=== PATIENT | female | born 1945 | race Caucasian/White ===

== ENCOUNTER 2016-04-19 11:14 | Day surgery (SDC) | payer MEDICARE, OTHER ==
[2016-04-16 10:06] LABS: BASOPHILS 1.2 %; BASOPHILS ABSOLUTE 0.07 10/3/uL (0.0-0.16); EOSINOPHILS 4.4 %; EOSINOPHILS ABSOLUTE 0.25 10/3/uL (0.0-0.53); HEMATOCRIT 41.3 % (36.0-48.0); HEMOGLOBIN 14.1 g/dL (12.0-16.0); IMMATURE GRANULOCYTES 0.2 %; IMMATURE GRANULOCYTES ABSOLUTE 0.01 10/3/uL (0.0-0.11); LYMPHOCYTES 21.5 %; LYMPHOCYTES ABSOLUTE 1.23 10/3/uL (0.67-4.30); MEAN CORPUS HGB CONC 34.1 g/dL (32.0-36.0); MEAN CORPUSCULAR HEMOGLOB 30.8 pg (26.0-34.0); MEAN CORPUSCULAR VOLUME 90.2 fL (80-100); MEAN PLATELET VOLUME 10.5 fL (9.2-13.0); MONOCYTES 10.7 %; MONOCYTES ABSOLUTE 0.61 10/3/uL (0.21-1.20); NEUTROPHILS ABSOLUTE 3.54 10/3/uL (2.02-8.40); PLATELET COUNT 279 10/3/uL (150-400); RBC DISTRIBUTION WIDTH 13.5 % (12.0-16.0); RED CELL COUNT 4.58 10/6/uL (4.0-5.6); WHITE BLOOD CELLS 5.7 10/3/uL (4.5-10.5)
[2016-04-16 10:07] LABS: MANUAL DIFF NO %
[2016-04-16 10:13] LABS: INTERNATIONAL NORMAL RATI 1.1 UNITS (-); PARTIAL THROMBO TIME 30.9 SEC (22.5-37.2)
[2016-04-16 10:21] LABS: BUN (BLOOD UREA NITROGEN) 19 MG/DL (6-23); CALCIUM, SERUM 8.6 MG/DL (8.5-10.4); CHLORIDE, SERUM 105 MMOL/L (96-112); CO2 (CARBON DIOXIDE) 27 MMOL/L (24-34); CREATININE 0.96 MG/DL (0.55-1.02); GFR AFRICAN AMERICAN 68 ML/MIN (>=60); GFR NON AFRICAN AMERICAN 59 ML/MIN (>=60); POTASSIUM, SERUM 4.9 MMOL/L (3.5-5.3); SODIUM, SERUM 142 MMOL/L (135-148)
[2016-04-16 10:23] LABS: GLUCOSE, SERUM 126 MG/DL (60-99)
[2016-04-16 10:26] LABS: PFA (COL/EPI) 108 SEC (72-180)
[2016-04-18 11:24] LABS: ALKALINE PHOSPHATASE 95 U/L (45-117); SGOT(AST) 19 U/L (5-40); SGPT(ALT) 27 U/L (5-65); TOTAL BILIRUBIN 0.2 MG/DL (0-1.2)
[2016-04-18 11:58] LABS: A/G RATIO 1.3 (0.7-1.9); GLOBULIN 3.2 G/DL (2.5-4.1); TOTAL PROTEIN 7.2 G/DL (6.0-8.5)
--- NOTE | ~2016-04-19 | OP ---
Record Of Operation [facility] [address] [place]. [address] NAME: SHIV KO : 41 STATUS : REG [facility]#: [id number] AGE: 71 ADM/REG DATE : 04/19/16 MR#: [id number] REPORT SERV DATE: 04/19/16 DICTATED BY: WILLIAM HAJI JR. DATE: 04/19/16 REPORT STATUS : Draft TRANSCRIBED BY: MODL DATE: 04/19/16 DATE OF PROCEDURE: REASON FOR SURGERY: Ms. Ko is a 71-year-old patient, underwent mastectomy on the right side without reconstruction in 2009. She had postoperative radiation therapy and chemotherapy. The lesion was aggressive and with node positive, but had complete pathological response. 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 She recently developed a firm area that was evaluated mainly arising on the inferior flap which is some advancement of the abdominal fatty tissue. There is one area of bluish discoloration. Core biopsy revealed a recurrent angiosarcoma. CT scan prior to this revealed a vague area of what is thought to be tumor recurrence measuring 2.5 to 3 cm, but the margins are so vague it extend for considerable area around this, as it is so common for sarcomas. The previous split-thickness skin graft is somewhat of a barrier to the superior extent of this, while the bulk of the recurrence is at the margin of the inferior flap. PREOPERATIVE DIAGNOSIS: Recurrent angiosarcoma, right chest wall. POSTOPERATIVE DIAGNOSIS: Recurrent angiosarcoma, right chest wall. SURGEON: William Haji M.D. with reconstruction by Dr. Fajardo. PROCEDURE IN DETAIL: Under general anesthesia, the patient was prepped and draped in supine position in usual sterile fashion. A large disc of the chest wall was marked measuring 20 x 12 cm. The inferior 50% of the previous split-thickness skin graft was incorporated. The largest vertical diameter was on the abdominal wall with the full 6 cm extending beyond the inferior edge of the known tumor recurrence. Medially and laterally, the old incisions involving areas of failed TRAM flap rotation and previous breast reductions were used for the additional areas of extension moving just beyond these. The incision was made and dissection was carried down through the fatty tissue to the chest wall. The radiated tissue is quite fused and while the ribs were not exposed, the dissection of the fibrotic fascial tissue from off the surface was performed. There was minimal distance now the remaining as I suspect most of the posterior wall involved removal of residual TRAM flap, as well as the serratus muscle. Eventually, the superior margin, the lateral border of the residual pectoralis muscle was encountered. The specimen was removed and oriented for pathology. There was no evidence of penetration of the tumor through the depths. It was reviewed grossly with the pathologist. Hemostasis was obtained and further description of operation is as per Dr. Fajardo. The role repeat radiation therapy is not generally favored in the literature as far as benefit, but certainly this is an option that is being reconsidered. Likewise, there was no Record Of Operation [address] [id number] NAME: SHIV KO : 41 STATUS : REG [facility] [place] PAT#: [id number] AGE: 71 ADM/REG DATE : 04/19/16 MR#: [id number] REPORT SERV DATE: 04/19/16 DICTATED BY: WILLIAM HAJI JR. DATE: 04/19/16 REPORT STATUS : Draft TRANSCRIBED BY: MATTHIAS DATE: 04/19/16 tumor for evaluation for response to chemotherapy, and whether waiting for non-resectable or distant recurrence would be appropriate timing for chemotherapy versus using in an adjuvant setting is not known. Overall, benefits of chemotherapy have been quite lacking for radiation induced angiosarcomas. The newer role of propranolol has been discussed, but again there was no gross tumor for evaluation as to response. /BIBL William Haji Jr., M.D. / [id number] CC: Mathew Chiang Jr., M.D. [facility] Mathew Pink M.D. Mark Brzezienski, M.D.
--- NOTE | ~2016-04-19 | OP ---
Record Of Operation [facility] [address] [place]. 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 POSTOPERATIVE DIAGNOSIS: Angiosarcoma of the right thorax skin envelope. PROCEDURE: Advancement flap and split thickness skin graft closure. INDICATIONS AND FINDINGS OF THE PROCEDURE: This 71-year-old female is status post a skin graft after an advancement flap closure and split-thickness skin graft in the past. She has now had a recurrence and she is appropriate for the above-described operative intervention. DETAILS OF THE PROCEDURE: The patient presents on the operating table after wide local excision by Dr. Thomason. With this completed then our attention was turned to advancement of the wound edges and 3-0 Monocryl inset of the dermis into the musculature of the chest wall. When this was carried out then circumferentially a split-thickness skin graft was obtained that the left side at 14 thousands of an inch. This was meshed 1 to 1.[address] over the open wound with standard fibrin glue technique. This wound was approximately 100 sq cm. A Xeroform dilute Betadine silk tie-over bolus type dressing was then placed over the skin graft and the donor site was dressed with a thin layer of fibrin glue as well as Tegaderm and multiple dry dressings and an Kevin wrap. She tolerated the procedure well. This was subsequently remanded to the recovery room in stable condition. All sponge and needle counts were correct. BK/MATTHIAS Brittany Fajardo M.D. / [id number] CC: Mathew Chiang Jr., M.D.
[~2016-04-19 11:14] MED LIST: AMB10 PO; ASA5GR PO; ASAB PO; ATEN50 PO; ATV.5 PO; BEN25 PO; CELEBREX2 PO; CENTRUM PO; CENTRUM TAB1 TAB PO; GLUCPH PO; LORT2.5 PO; LORT7 PO; OSTEO BIFLEX PO; PRAVAC PO; PROZAC40 MG PO; VITC500 PO; ZOL50 PO
[2016-07-05] MEDS ORDERED: I40 PO (12:05)
== END 2016-04-19 18:17 | disposition home or self-care (01) ==
LOC: SDC 11:14
PROVIDERS: Surgery Surgical Oncology
PROC: 0HX5XZZ Transfer Chest Skin, External Approach (ICD-10-PCS; principal; 2016-04-19 12:45)
DX: C76.1 Malignant neoplasm of thorax (principal); E78.5 Hyperlipidemia, unspecified; I10 Essential (primary) hypertension; M19.90 Unspecified osteoarthritis, unspecified site; E11.9 Type 2 diabetes mellitus without complications; F41.9 Anxiety disorder, unspecified; Z79.899 Other long term (current) drug therapy
CPT/HCPCS: 71010; 80048; 80053; 82962; 85025; 85576; 85610; 85730; 88305; 88309; 93005; A9270-GY; J0360; J0690; J1885; J2250; J2405; J2795; J3010

== ENCOUNTER 2016-07-10 06:21 | Day surgery (SDC) | payer MEDICARE, OTHER ==
[2016-07-09 08:48] LABS: BASOPHILS 1.6 %; BASOPHILS ABSOLUTE 0.05 10/3/uL (0.0-0.16); EOSINOPHILS 7.2 %; EOSINOPHILS ABSOLUTE 0.23 10/3/uL (0.0-0.53); HEMATOCRIT 40.2 % (36.0-48.0); HEMOGLOBIN 13.3 g/dL (12.0-16.0); IMMATURE GRANULOCYTES 0.3 %; IMMATURE GRANULOCYTES ABSOLUTE 0.01 10/3/uL (0.0-0.11); LYMPHOCYTES 30.8 %; LYMPHOCYTES ABSOLUTE 0.99 10/3/uL (0.67-4.30); MEAN CORPUS HGB CONC 33.1 g/dL (32.0-36.0); MEAN CORPUSCULAR HEMOGLOB 29.6 pg (26.0-34.0); MEAN CORPUSCULAR VOLUME 89.3 fL (80-100); MEAN PLATELET VOLUME 10.5 fL (9.2-13.0); MONOCYTES 5.9 %; MONOCYTES ABSOLUTE 0.19 10/3/uL (0.21-1.20); NEUTROPHILS 54.2 %; NEUTROPHILS ABSOLUTE 1.74 10/3/uL (2.02-8.40); PLATELET COUNT 336 10/3/uL (150-400); RBC DISTRIBUTION WIDTH 13.3 % (12.0-16.0)
[2016-07-09 08:49] LABS: MANUAL DIFF NO %; WHITE BLOOD CELLS 3.2 10/3/uL (4.5-10.5)
[2016-07-09 09:07] LABS: CALCIUM, SERUM 8.8 MG/DL (8.5-10.4); CHLORIDE, SERUM 103 MMOL/L (96-112); CO2 (CARBON DIOXIDE) 29 MMOL/L (24-34); CREATININE 0.96 MG/DL (0.55-1.02); GFR AFRICAN AMERICAN 68 ML/MIN (>=60); GFR NON AFRICAN AMERICAN 59 ML/MIN (>=60); GLUCOSE, SERUM 154 MG/DL (60-99); POTASSIUM, SERUM 5.1 MMOL/L (3.5-5.3); SODIUM, SERUM 137 MMOL/L (135-148)
[2016-07-09 09:08] LABS: BUN (BLOOD UREA NITROGEN) 17 MG/DL (6-23)
--- NOTE | ~2016-07-10 | OP ---
Record Of Operation [facility] [address] [place]. [address] NAME: SHIV KO : 41 STATUS : REG [facility] [place] PAT#: [id number] AGE: 71 ADM/REG DATE : 07/10/16 MR#: [id number] REPORT SERV DATE: 07/10/16 DICTATED BY: MAURICE GO DATE: 07/10/16 REPORT STATUS : Draft TRANSCRIBED BY: MATTHIAS DATE: 07/10/16 DATE OF PROCEDURE: 07/10/2016 PREOPERATIVE DIAGNOSES: 1. History of right breast cancer status post treatment. 2. Right chest wall angiosarcoma status post resection. POSTOPERATIVE DIAGNOSES: 1. History of right breast cancer status post treatment. 2. Right chest wall angiosarcoma status post resection. PROCEDURES: 1. Placement of a left internal jugular venous port. 2. Intraoperative fluoroscopy with interpretation. 3. Intraoperative ultrasound for vein access. INDICATION FOR THE PROCEDURE: Ms Ko is a 71-year-old female with a history of right breast cancer treated by Dr. Thomason. She had a left chest wall venous port for neoadjuvant chemotherapy at that time. Unfortunately, shortly after treatment with mastectomy and radiation, she developed nodules on the skin on the right chest wall. Biopsy showed angiosarcoma which has been aggressively treated with a wide excision locally of the chest wall tissue and muscle. The patient did have a skin graft coverage of the area by Dr. Fajardo at that time. She has already had two treatments with Taxol postoperatively, and there was need for permanent access. OPERATIVE FINDINGS: After appropriate consent was on the chart, the patient was taken to the operating room in supine position. She was placed under monitored anesthesia without complication. The ultrasound was utilized to visualize the left internal jugular vein which was in the normal anatomic position and patent. The prior port pocket was quite medial close to the sternum, and I expected it would likely make a new port pocket more laterally for appropriate angle with internal jugular vein access site. The patient's left chest wall was prepped and draped in sterile fashion. The ultrasound probe was utilized to revisualize the left internal jugular vein, which was anesthetized locally the soft tissues overlying. A single pass of the Seldinger needle was utilized under direct ultrasound guidance to access the vein. Nonpulsatile venous appearing blood was noted in the syringe. The syringe was removed, and the wire was passed with ease. Fluoroscopy noted the wire to be in good position. The needle was removed. The wire was secured to the drapes for later use. The port pocket was created approximately 10 to 15 cm more lateral than the prior port pocket. An incision was made with a #15 blade after local anesthetic had been instilled. The port pocket was created with Bovie cauterization. Stay sutures were placed of 3-0 Prolene at the 3 o'clock and 9 o'clock positions. The sutures were secured for later use. An 11 blade was utilized to lengthen the vein access site in the neck, and the tunneling device was utilized to create a new subcutaneous tunnel between the port pocket and the vein access. The catheter was pulled through without issue. The vein was dilated with constant movement of the wire with the dilator and tear-away sheath over the wire. The wire and dilator were removed from the sheath leaving the sheath in the vein. The catheter was passed through the Record Of Operation [address] [id number] NAME: KOBRAYAN HODGESALYN COLLIN Jairon : 41 STATUS : REG [facility] [place] PAT#: [id number] AGE: 71 ADM/REG DATE : 07/10/16 MR#: [id number] REPORT SERV DATE: 07/10/16 DICTATED BY: MAURICE GO DATE: 07/10/16 REPORT STATUS : Draft TRANSCRIBED BY: MATTHIAS DATE: 07/10/16 sheath without issue. The sheath torn away leaving the catheter in the vein. The catheter was pulled back to the atriocaval junction, and clipped for length at the port pocket. It was secured to the port with the securing device. Heparinized saline in the Zelaya needle was utilized to try to aspirate and flush the catheter. The flow was weak, and therefore the catheter was pulled back slightly for strong flow. The port was flushed with heparinized saline and packed. The port was then secured into the port pocket with two stay sutures. The wound was irrigated, and hemostasis was achieved. The catheter had been secured to the port with the securing device. The wound was closed in two layers of Monocryl. The skin was cleansed and dried. Dermabond overlaid. Once the Dermabond had dried, a Telfa and Tegaderm were overlaid. The patient was awoken from anesthesia without complication, taken to the PACU in stable condition for recovery, and for a chest x-ray. All counts were correct at the end of the case. ESTIMATED BLOOD LOSS: 10 mL. COMPLICATIONS: None. SPECIMENS: None. HOWARD/MODNorberto Maurice Go MD / [id number] CC: MD BRITTANY Lovelace M.D. [facility] Valente Shankar M.D.
[~2016-07-10 06:21] MED LIST changes: +I40 PO
== END 2016-07-10 12:09 | disposition home or self-care (01) ==
LOC: SDC 06:21
PROVIDERS: Surgery Surgical Oncology
PROC: 05HN33Z Insertion of Infusion Device into Left Internal Jugular Vein, Percutaneous Approach (ICD-10-PCS; principal; 2016-07-10 07:45)
DX: Z45.2 Encounter for adjustment and management of vascular access device (principal); I10 Essential (primary) hypertension; E11.9 Type 2 diabetes mellitus without complications; E78.5 Hyperlipidemia, unspecified; E78.00 Pure hypercholesterolemia, unspecified; F41.9 Anxiety disorder, unspecified; L59.8 Other specified disorders of the skin and subcutaneous tissue related to radiation; N61.1 Abscess of the breast and nipple; M19.90 Unspecified osteoarthritis, unspecified site; Z85.3 Personal history of malignant neoplasm of breast; Z92.3 Personal history of irradiation; Z92.21 Personal history of antineoplastic chemotherapy; Z98.51 Tubal ligation status; Z90.11 Acquired absence of right breast and nipple; Z96.1 Presence of intraocular lens; Z98.41 Cataract extraction status, right eye; Z98.42 Cataract extraction status, left eye; Z79.82 Long term (current) use of aspirin; Z79.84 Long term (current) use of oral hypoglycemic drugs; Z79.899 Other long term (current) drug therapy; Z98.890 Other specified postprocedural states
CPT/HCPCS: 71010; 76000; 77001; 80048; 82962; 85025; 93005; C1751; G0463; J0690; J2250; J3010